=== PATIENT | female | born 1980 | race Caucasian/White ===

== ENCOUNTER → 2018-04-26 15:58 | Outpatient (CLI) | payer BC, SELFPAY ==
[2018-04-30 14:50] LABS: HPV Reflexed? NOT INDICATED
== END ==
PROVIDERS: Visit Provider Obstetrics & Gynecology
DX: Z12.4 Encounter for screening for malignant neoplasm of cervix (principal)
CPT/HCPCS: 88175; G0145

== ENCOUNTER → 2021-01-31 14:07 | Outpatient (CLI) | payer BC, SELFPAY ==
[2017-07-03 02:48] VITALS: BMI 26.6
[2021-02-06 18:05] LABS: HPV APTIMA, High Risk Negative (Negative)
== END ==
PROVIDERS: Visit Provider Obstetrics & Gynecology
DX: Z12.4 Encounter for screening for malignant neoplasm of cervix (principal)
CPT/HCPCS: 87624; 88175; G0145